=== PATIENT | female | born 1960 | race Caucasian/White ===

== ENCOUNTER 2018-11-03 08:40 | Day surgery (SDC) | payer BC ==
[~2018-11-03 08:40] MED LIST: Lactated Ringers 1,000 ML IV SCH; Sodium Chloride 0.9% 10 ML Syringe FLUSH PRN
[2018-11-03] MEDS ORDERED: Propofol 200 MG/20 ML SDV ONE ×3 (10:05→10:57)
[2018-11-03] MEDS ORDERED: Midazolam 1 MG/ML 2 ML SDV ONE ×2 (10:05→10:18)
--- NOTE | 2018-11-03 10:08 | PCM.HPR ---
H & P Addendum review - H & P Addendum Review Date of Original H & P: 10/24/18 Date Reviewed: 11/03/18 Time Reviewed: 10:08 Patient was Examined: No Changes
--- NOTE | 2018-11-03 10:51 | PCM.OPNOTE ---
- General Post-Op/Procedure Note Date of Surgery/Procedure: 11/03/18 Operative Procedure(s): Colonoscopy Findings: normal Pre Op Diagnosis: Hx Colon Polyps Post-Op Diagnosis: Same Anesthesia Technique: MAC Primary Surgeon: Mika Michele Anesthesia Provider: Pema Zendejas Complications: None Condition: Good
--- NOTE | 2018-11-03 11:34 | PCM.OPNOTE ---
- General Post-Op/Procedure Note Date of Surgery/Procedure: 11/03/18 Operative Procedure(s): Colonoscopy Findings: Normal Pre Op Diagnosis: Screening Post-Op Diagnosis: Same Anesthesia Technique: FABBY Primary Surgeon: Mika Michele Anesthesia Provider: Pema Zendejas Complications: None Condition: Good
--- NOTE | 2018-11-03 14:20 | OR ---
Date of Procedure: 11/03/2018 PREOPERATIVE DIAGNOSIS: History of colon polyps. POSTOPERATIVE DIAGNOSIS: Normal colonoscopy. PROCEDURE: Colonoscopy. ANESTHESIA: IV sedation. PROCEDURE: The patient was brought to the procedure room where she was placed on her left side and IV sedation administered. Digital rectal exam was performed which was normal. Colonoscope was inserted and advanced to the level of the cecum with moderate difficulty getting through a tortuous colon requiring pressure on the abdomen and eventually changing to the supine position. Cecum was reached and confirmed by identifying the appendiceal lumen and the ileocecal valve. Prep was good and surfaces were well visualized. Upon withdrawing the scope, the ascending, transverse, and descending colon were normal in appearance. Sigmoid colon and rectum were normal. Retroflexion was normal. Air was removed and the scope withdrawn. The patient tolerated the procedure well and returned to recovery in stable condition. Recommend surveillance colonoscopy again in five years. ROMEL MORRISON MD /[id number]
== END 2018-11-03 11:55 | disposition home or self-care (01) ==
LOC: LL.SDS 08:40
PROVIDERS: ATTEND Surgery
DX: Z12.11 Encounter for screening for malignant neoplasm of colon (principal); Z86.010 Personal history of colon polyps; G43.909 Migraine, unspecified, not intractable, without status migrainosus; Z79.899 Other long term (current) drug therapy
CPT/HCPCS: J2250; J2704; J7120

== ENCOUNTER 2024-02-10 07:13 | Day surgery (SDC) | payer BC ==
[2024-02-10] MEDS ORDERED: Midazolam 1 MG/ML 2 ML SDV ONE (07:28)
[2024-02-10] MEDS ORDERED: Propofol 200 MG/20 ML SDV ONE (07:29)
[2024-02-10] MEDS ORDERED: Sodium Chloride 0.9% 10 ML Syringe FLUSH PRN (07:30)
[2024-02-10] MEDS: Lactated Ringers 1,000 ML IV SCH (07:46)
[2024-02-10] MEDS ORDERED: Propofol 200 MG/20 ML SDV IVPUSH ONE (08:40)
[2024-02-10] MEDS ORDERED: Ondansetron 4 MG/2 ML SDV IVPUSH ONE (08:40)
== END 2024-02-10 10:00 | disposition home or self-care (01) ==
LOC: LL.SDS 07:13
PROVIDERS: ATTEND Surgery
DX: Z12.11 Encounter for screening for malignant neoplasm of colon (principal); D12.0 Benign neoplasm of cecum; Z88.8 Allergy status to other drugs, medicaments and biological substances; Z86.010 Personal history of colon polyps; Z79.899 Other long term (current) drug therapy
CPT/HCPCS: 00811; J2250; J2405; J2704; J7120

== ENCOUNTER 2024-11-23 11:25 | Day surgery (SDC) | payer BC ==
[~2024-11-23 11:25] MED LIST changes: -Lactated Ringers 1,000 ML IV SCH; +Midazolam 1 MG/ML 2 ML SDV ONE; +Propofol 200 MG/20 ML SDV ONE
[2024-11-23] MEDS: Lactated Ringers 1,000 ML IV SCH (11:27)
[2024-11-23] MEDS ORDERED: Ondansetron 4 MG/2 ML SDV IVPUSH ONE (12:20)
[2024-11-23] MEDS ORDERED: Glycopyrrolate 0.2 MG/ML SDV IVPUSH ONE (12:20)
[2024-11-23] MEDS ORDERED: Propofol 200 MG/20 ML SDV ONE (12:22)
[2024-11-23 13:04] VITALS: BP 92/57; PULSE 90
== END 2024-11-23 13:40 | disposition home or self-care (01) ==
LOC: LL.SDS 11:25
PROVIDERS: ATTEND Surgery
DX: D50.9 Iron deficiency anemia, unspecified (principal); K29.50 Unspecified chronic gastritis without bleeding; E78.49 Other hyperlipidemia; Z79.899 Other long term (current) drug therapy
CPT/HCPCS: 00731; J1596; J2250; J2405; J2704; J7120